=== PATIENT | female | born 1945 | race African-American/Black ===

== ENCOUNTER 2022-09-10 11:01 | Inpatient (IN) | payer OTHER ==
[~2022-09-10] VITALS: Ht 165.1 cm; Wt 94.3 kg
[2022-09-10] VITALS (36 sets, daily range): BP systolic 95–180; BP diastolic 42–112
[2022-09-10] MEDS ORDERED: IOHEXOL-350 100 ML BOTTLE ONE (11:26)
[2022-09-10] MEDS ORDERED: SUCCINYLCHOLINE CHLORIDE 200MG/10ML IV ONE (11:30)
[2022-09-10] MEDS ORDERED: FENTANYL CITRATE/PF 50MCG/ML 2ML VIAL IV ONE (11:30)
[2022-09-10] MEDS ORDERED: PROPOFOL 10MG/ML 100ML 100 ML IV ONE ×2 (11:30)
[2022-09-10] MEDS ORDERED: LEVETIRACETAM 1000MG PREMIX 100 ML IV NR (12:00)
[2022-09-10] MEDS ORDERED: MANNITOL 20% (20GM/100ML) BAG 500ML PREMIX IV ONE (12:00)
[2022-09-10] MEDS ORDERED: NICARDIPINE 40MG/200ML PREMIX 200 ML IV SCH (12:00)
[2022-09-10] MEDS ORDERED: GENTAMICIN SULF 40MG/ML 2ML VIAL ONE (12:03)
[2022-09-10] MEDS ORDERED: LIDOCAINE HCL 1%/EPI 1:200,000 30 ML VIAL ONE (12:03)
[2022-09-10] MEDS ORDERED: THROMBIN (BOVINE) 5000 UNITS/VIAL TOP ONE (12:03)
[2022-09-10] MEDS ORDERED: BACITRACIN 15GM TUBE TOP ONE (12:03)
[2022-09-10 12:13] LABS: BG CARBOXYHEMOGLOBIN 0.7 % (0.5-1.5); BG DEOXYHEMOGLOBIN 0.1 % (0.0-5.0); BG FRACTION INSPIRED OXYGEN 100; BG HCO3 ACT 28.1 mmol/L (22.0-26.0); BG METHEMOGLOBIN 0.8 % (0.0-1.5); BG OXYGEN SATURATION 99.9 % (92.0-98.5); BG OXYHEMOGLOBIN 98.4 % (94.0-97.0); BG PCO2 50.1 mmHg (35.0-45.0); BG PH 7.367 (7.350-7.450); BG PO2 538.7 mmHg (75.0-100.0); BG SAMPLE SITE RIGHT RADIAL; BG TOTAL HEMOGLOBIN 13.3 g/dL (12.0-18.0); BG VENT MODE VENT - AC
[2022-09-10] MEDS ORDERED: MANNITOL 20% 250 ML IV NR (12:15)
[2022-09-10 12:35] LABS: BASOPHILS % 0.3 % (0.0-2.0); CLARITY URINE CLEAR (CLEAR); COLOR URINE YELLOW (YELLOW); EOSINOPHILS % 0.6 % (0.0-5.0); HEMATOCRIT. 38.3 % (36.0-48.0); HEMOGLOBIN. 12.7 g/dL (12.0-16.0); KETONES URINE TRACE (NEGATIVE); LEUKOCYTE ESTERASE URINE NEGATIVE (NEGATIVE); LYMPHOCYTES % 11.1 % (20.0-50.0); MEAN CORPUSCULAR HEMOGLOBIN 27.8 pg (28.0-32.0); MEAN PLATELET VOLUME 8.9 fl (7.4-10.4); MONOCYTES % 7.8 % (2.0-8.0); NEUTROPHILS % 80.2 % (40.0-76.0); NITRITE URINE NEGATIVE (NEGATIVE); OCCULT BLOOD URINE TRACE (NEGATIVE); PLATELET 193 x1000/uL (130-400); PROTEIN URINE TRACE (NEGATIVE); RED BLOOD CELL COUNT 4.56 mill/uL (4.2-5.4); SPECIFIC GRAVITY URINE 1.026 (1.005-1.030); UROBILINOGEN URINE 0.2 E.U./dL (0.2-1.0)
[2022-09-10 12:43] LABS: CHLORIDE 106 mEq/L (98-107); INR 1.1; PROTHROMBIN TIME 11.7 sec (9.6-11.0)
[2022-09-10 12:50] LABS: ETHANOL BLOOD < 10 mg/dL
[2022-09-10 14:02] LABS: *AMPHETAMINES SCREEN URINE NEGATIVE (NEGATIVE); *BARBITURATES SCREEN URINE NEGATIVE (NEGATIVE); *BENZODIAZEPINES SCREEN URINE NEGATIVE (NEGATIVE); *COCAINE SCREEN URINE NEGATIVE (NEGATIVE); CANNABINOID URINE SCREEN NEGATIVE (NEGATIVE); METHADONE URINE SCREEN NEGATIVE (NEGATIVE); OPIATES URINE SCREEN NEGATIVE (NEGATIVE); PHENCYCLIDINE URINE SCREEN NEGATIVE (NEGATIVE)
[2022-09-10] MEDS ORDERED: CEFAZOLIN 1000MG PREMIX 50 ML IV NR (14:15)
[2022-09-10] MEDS ORDERED: NALOXONE HCL 0.4MG/ML VIAL IV PRN (14:15)
[2022-09-10] MEDS ORDERED: NICARDIPINE 100 MG in SODIUM CHLORIDE 0.9% 60 ML IV PRN (15:00)
[2022-09-10] MEDS ORDERED: ONDANSETRON HCL 4MG/2ML INJ IV PRN (15:00)
[2022-09-10] MEDS ORDERED: NA PHOS,M-B/NA PHOS,DI-BA ENEMA 118ML PR PRN (15:00)
[2022-09-10] MEDS ORDERED: IPRATROPIUM/ALBUTEROL 0.5-3(2.5)MG/3ML NEB NEB PRN (15:00)
[2022-09-10] MEDS ORDERED: ACETAMINOPHEN 650MG SUPP PR PRN ×2 (15:00)
[2022-09-10] MEDS ORDERED: PROPOFOL 200MG/20ML VIAL IV ONE (15:02)
[2022-09-10] MEDS: DEXT 5%/LACTATED RINGERS 1,000 ML IV SCH (16:35)
[2022-09-10] MEDS: NICARDIPINE 100 MG in SODIUM CHLORIDE 0.9% 60 ML IV PRN (16:36)
[2022-09-10] MEDS: MORPHINE SULFATE 4 MG/ML CPJ (NOT FOR IM USE) IV PRN (16:38)
[2022-09-10] MEDS ORDERED: PANTOPRAZOLE SODIUM 40 MG/VIAL IV SCH (17:15)
[2022-09-10] MEDS: DEXAMETHASONE 4MG/ML 1ML VIAL IV SCH (17:46)
[2022-09-10] MEDS: PROPOFOL 10MG/ML 100ML 100 ML IV PRN (17:48)
[2022-09-10 18:55] LABS: T4 FREE 1.36 ng/dL (0.76-1.46)
[2022-09-10] MEDS: IPRATROPIUM/ALBUTEROL 0.5-3(2.5)MG/3ML NEB HHN SCH (20:34)
[2022-09-10] MEDS ORDERED: LEVETIRACETAM 500MG PREMIX 100 ML IV SCH (21:00)
[2022-09-10] MEDS: CEFAZOLIN 1000MG PREMIX 50 ML IV SCH (21:14)
[2022-09-10] MEDS: FAMOTIDINE 20MG/2ML VIAL IV SCH (21:14)
[2022-09-11] VITALS (95 sets, daily range): BP systolic 98–141; BP diastolic 35–77
[2022-09-11] MEDS: DEXAMETHASONE 4MG/ML 1ML VIAL IV SCH ×5 (01:08→23:07)
[2022-09-11] MEDS: MORPHINE SULFATE 4 MG/ML CPJ (NOT FOR IM USE) IV PRN (01:09)
[2022-09-11] MEDS: PROPOFOL 10MG/ML 100ML 100 ML IV PRN ×4 (01:33→23:09)
[2022-09-11] MEDS: IPRATROPIUM/ALBUTEROL 0.5-3(2.5)MG/3ML NEB HHN SCH ×4 (02:34→20:33)
[2022-09-11] MEDS: CEFAZOLIN 1000MG PREMIX 50 ML IV SCH ×2 (03:17→04:58)
[2022-09-11] MEDS: DEXT 5%/LACTATED RINGERS 1,000 ML IV SCH (06:41)
[2022-09-11 06:47] LABS: HEMATOCRIT. 36.1 % (36.0-48.0); HEMOGLOBIN. 11.8 g/dL (12.0-16.0); MEAN CORPUSCULAR HEMOGLOBIN 27.5 pg (28.0-32.0); MEAN CORPUSCULAR VOLUME 83.7 fL (81.0-99.0); RED BLOOD CELL COUNT 4.31 mill/uL (4.2-5.4); RED CELL DISTRIBUTION WIDTH 14.5 % (11.6-14.6)
[2022-09-11] MEDS ORDERED: LIDOCAINE HCL 1% 30ML VIAL (10MG/ML) ONE (07:37)
[2022-09-11 09:04] LABS: BG BASE EXCESS 2.6 mmol/L (-2.0-2.0); BG CARBOXYHEMOGLOBIN 1.2 % (0.5-1.5); BG DEOXYHEMOGLOBIN 0.7 % (0.0-5.0); BG FRACTION INSPIRED OXYGEN 40; BG HCO3 ACT 25.4 mmol/L (22.0-26.0); BG OXYGEN SATURATION 99.3 % (92.0-98.5); BG OXYHEMOGLOBIN 98.1 % (94.0-97.0); BG PCO2 33.2 mmHg (35.0-45.0); BG PH 7.502 (7.350-7.450); BG PO2 128.1 mmHg (75.0-100.0); BG SAMPLE SITE RIGHT RADIAL; BG TOTAL HEMOGLOBIN 12.1 g/dL (12.0-18.0); BG VENT MODE VENT - AC
[2022-09-11] MEDS: FAMOTIDINE 20MG/2ML VIAL IV SCH ×2 (09:17→22:20)
[2022-09-11 10:11] LABS: CHLORIDE 113 mEq/L (98-107)
[2022-09-11] MEDS: LEVETIRACETAM 500MG PREMIX 100 ML IV SCH ×2 (10:33→22:21)
[2022-09-11] MEDS ORDERED: KCL 20MEQ/100ML PREMIX 100 ML IV NR (12:00)
[2022-09-12] VITALS (96 sets, daily range): BP systolic 108–140; BP diastolic 57–85
[2022-09-12] MEDS: IPRATROPIUM/ALBUTEROL 0.5-3(2.5)MG/3ML NEB HHN SCH ×4 (00:28→20:30)
[2022-09-12] MEDS: PROPOFOL 10MG/ML 100ML 100 ML IV PRN ×4 (02:30→17:48)
[2022-09-12] MEDS: DEXAMETHASONE 4MG/ML 1ML VIAL IV SCH ×3 (05:30→17:46)
[2022-09-12] MEDS: DEXT 5%/LACTATED RINGERS 1,000 ML IV SCH ×2 (05:31→17:46)
[2022-09-12 05:41] LABS: HEMATOCRIT. 36.9 % (36.0-48.0); HEMOGLOBIN. 11.9 g/dL (12.0-16.0); MEAN CORPUSCULAR HEMOGLOBIN 27.2 pg (28.0-32.0); MEAN CORPUSCULAR VOLUME 84.5 fL (81.0-99.0); MEAN PLATELET VOLUME 9.5 fl (7.4-10.4); PLATELET 194 x1000/uL (130-400); RED BLOOD CELL COUNT 4.36 mill/uL (4.2-5.4); RED CELL DISTRIBUTION WIDTH 14.8 % (11.6-14.6)
[2022-09-12 06:08] LABS: CHLORIDE 112 mEq/L (98-107)
[2022-09-12 07:16] LABS: PLATELET ESTIMATE NORMAL
[2022-09-12 07:17] LABS: MEAN PLATELET VOLUME 9.9 fl (7.4-10.4); PLATELET 180 x1000/uL (130-400)
[2022-09-12] MEDS ORDERED: KCL 20MEQ/100ML PREMIX 100 ML IV SCH (09:00)
[2022-09-12] MEDS: FAMOTIDINE 20MG/2ML VIAL IV SCH ×2 (09:01→20:34)
[2022-09-12] MEDS: LEVETIRACETAM 500MG PREMIX 100 ML IV SCH ×2 (09:01→20:34)
[2022-09-12 09:08] LABS: BG BASE EXCESS 1.2 mmol/L (-2.0-2.0); BG CARBOXYHEMOGLOBIN 0.3 % (0.5-1.5); BG DEOXYHEMOGLOBIN 1.2 % (0.0-5.0); BG FRACTION INSPIRED OXYGEN 40; BG HCO3 ACT 23.4 mmol/L (22.0-26.0); BG OXYGEN SATURATION 98.8 % (92.0-98.5); BG OXYHEMOGLOBIN 98.5 % (94.0-97.0); BG PCO2 29.7 mmHg (35.0-45.0); BG PH 7.514 (7.350-7.450); BG PO2 148.1 mmHg (75.0-100.0); BG SAMPLE SITE RIGHT RADIAL; BG VENT MODE VENT - AC
[2022-09-12] MEDS: NICARDIPINE 100 MG in SODIUM CHLORIDE 0.9% 60 ML IV PRN ×2 (10:03→22:08)
[2022-09-12 13:48] LABS: PLATELET ESTIMATE NORMAL
[2022-09-12] MEDS ORDERED: KCL 20MEQ/100ML PREMIX 100 ML IV NR (18:00)
[2022-09-12] MEDS ORDERED: PROPOFOL 10MG/ML 100ML 100 ML IV PRN (20:00)
[2022-09-13] VITALS (96 sets, daily range): BP systolic 103–141; BP diastolic 51–113
[2022-09-13] MEDS: IPRATROPIUM/ALBUTEROL 0.5-3(2.5)MG/3ML NEB HHN SCH ×4 (02:27→20:40)
[2022-09-13 04:16] LABS: HEMATOCRIT. 34.6 % (36.0-48.0); HEMOGLOBIN. 11.4 g/dL (12.0-16.0); MEAN CORPUSCULAR HEMOGLOBIN 27.4 pg (28.0-32.0); MEAN CORPUSCULAR VOLUME 83.4 fL (81.0-99.0); MEAN PLATELET VOLUME 9.2 fl (7.4-10.4); PLATELET 177 x1000/uL (130-400); RED BLOOD CELL COUNT 4.15 mill/uL (4.2-5.4); RED CELL DISTRIBUTION WIDTH 14.6 % (11.6-14.6)
[2022-09-13 04:27] LABS: CHLORIDE 112 mEq/L (98-107)
[2022-09-13] MEDS: NICARDIPINE 100 MG in SODIUM CHLORIDE 0.9% 60 ML IV PRN ×3 (05:54→21:00)
[2022-09-13] MEDS: LEVETIRACETAM 500MG PREMIX 100 ML IV SCH ×2 (08:35→21:23)
[2022-09-13] MEDS: FAMOTIDINE 20MG/2ML VIAL IV SCH ×2 (08:35→21:23)
[2022-09-13 09:39] LABS: PLATELET ESTIMATE NORMAL
[2022-09-13 10:55] LABS: BG BASE EXCESS 2.9 mmol/L (-2.0-2.0); BG CARBOXYHEMOGLOBIN 0.3 % (0.5-1.5); BG FRACTION INSPIRED OXYGEN 40; BG HCO3 ACT 26.4 mmol/L (22.0-26.0); BG METHEMOGLOBIN 0.4 % (0.0-1.5); BG OXYHEMOGLOBIN 97.3 % (94.0-97.0); BG PCO2 36.8 mmHg (35.0-45.0); BG PH 7.474 (7.350-7.450); BG PO2 100.4 mmHg (75.0-100.0); BG SAMPLE SITE RIGHT RADIAL; BG TOTAL HEMOGLOBIN 12.4 g/dL (12.0-18.0); BG TOTAL RESPIRATORY RATE 16 b/min; BG VENT MODE VENT - AC
[2022-09-13] MEDS: DEXT 5%/LACTATED RINGERS 1,000 ML IV SCH (13:38)
[2022-09-14] VITALS (92 sets, daily range): BP systolic 111–148; BP diastolic 50–69
[2022-09-14] MEDS: IPRATROPIUM/ALBUTEROL 0.5-3(2.5)MG/3ML NEB HHN SCH ×4 (02:29→20:17)
[2022-09-14] MEDS: DEXT 5%/LACTATED RINGERS 1,000 ML IV SCH ×2 (05:00→08:19)
[2022-09-14 05:04] LABS: HEMATOCRIT. 33.8 % (36.0-48.0); MEAN CORPUSCULAR HEMOGLOBIN 27.1 pg (28.0-32.0); MEAN CORPUSCULAR VOLUME 83.2 fL (81.0-99.0); MEAN PLATELET VOLUME 9.7 fl (7.4-10.4); PLATELET 181 x1000/uL (130-400); RED BLOOD CELL COUNT 4.07 mill/uL (4.2-5.4); RED CELL DISTRIBUTION WIDTH 14.2 % (11.6-14.6)
[2022-09-14 05:17] LABS: CHLORIDE 114 mEq/L (98-107)
[2022-09-14 08:10] LABS: BG BASE EXCESS 1.7 mmol/L (-2.0-2.0); BG CARBOXYHEMOGLOBIN 0.3 % (0.5-1.5); BG DEOXYHEMOGLOBIN 8.3 % (0.0-5.0); BG FRACTION INSPIRED OXYGEN 30; BG HCO3 ACT 24.5 mmol/L (22.0-26.0); BG METHEMOGLOBIN 0.2 % (0.0-1.5); BG OXYGEN SATURATION 91.7 % (92.0-98.5); BG OXYHEMOGLOBIN 91.2 % (94.0-97.0); BG PCO2 32.5 mmHg (35.0-45.0); BG PH 7.495 (7.350-7.450); BG PO2 57.9 mmHg (75.0-100.0); BG SAMPLE SITE LEFT RADIAL; BG TOTAL HEMOGLOBIN 11.9 g/dL (12.0-18.0); BG TOTAL RESPIRATORY RATE 21 b/min; BG VENT MODE VENT - AC
[2022-09-14] MEDS: LEVETIRACETAM 500MG PREMIX 100 ML IV SCH ×2 (08:19→21:49)
[2022-09-14] MEDS: FAMOTIDINE 20MG/2ML VIAL IV SCH ×2 (08:19→21:49)
[2022-09-14] MEDS: MORPHINE SULFATE 4 MG/ML CPJ (NOT FOR IM USE) IV PRN (09:15)
[2022-09-14] MEDS: LEVOFLOXACIN 500MG PREMIX 100 ML IV SCH (09:37)
[2022-09-14 10:43] LABS: PLATELET ESTIMATE NORMAL
[2022-09-14] MEDS: NICARDIPINE 100 MG in SODIUM CHLORIDE 0.9% 60 ML IV PRN ×2 (13:13→21:48)
[2022-09-14] MEDS ORDERED: KCL 20MEQ/100ML PREMIX 100 ML IV NR (16:00)
[2022-09-14] MEDS: HYDRALAZINE 20MG/ML VIAL IV PRN (18:19)
[2022-09-15] VITALS (93 sets, daily range): BP systolic 101–136; BP diastolic 46–102
[2022-09-15] MEDS: IPRATROPIUM/ALBUTEROL 0.5-3(2.5)MG/3ML NEB HHN SCH ×4 (01:41→20:38)
[2022-09-15] MEDS: NICARDIPINE 100 MG in SODIUM CHLORIDE 0.9% 60 ML IV PRN ×2 (03:39→11:27)
[2022-09-15] MEDS: HYDRALAZINE 20MG/ML VIAL IV PRN ×2 (03:43→10:55)
[2022-09-15 05:38] LABS: HEMOGLOBIN. 11.4 g/dL (12.0-16.0); MEAN CORPUSCULAR HEMOGLOBIN 27.3 pg (28.0-32.0); MEAN PLATELET VOLUME 9.9 fl (7.4-10.4); PLATELET 172 x1000/uL (130-400); RED BLOOD CELL COUNT 4.17 mill/uL (4.2-5.4); RED CELL DISTRIBUTION WIDTH 14.6 % (11.6-14.6)
[2022-09-15 05:50] LABS: CHLORIDE 113 mEq/L (98-107)
[2022-09-15 08:46] LABS: BG BASE EXCESS 2.7 mmol/L (-2.0-2.0); BG CARBOXYHEMOGLOBIN 0.7 % (0.5-1.5); BG DEOXYHEMOGLOBIN 7.8 % (0.0-5.0); BG FRACTION INSPIRED OXYGEN 40; BG HCO3 ACT 23.8 mmol/L (22.0-26.0); BG METHEMOGLOBIN 0.2 % (0.0-1.5); BG OXYGEN SATURATION 92.1 % (92.0-98.5); BG OXYHEMOGLOBIN 91.3 % (94.0-97.0); BG PCO2 26.6 mmHg (35.0-45.0); BG PO2 53.6 mmHg (75.0-100.0); BG SAMPLE SITE LEFT RADIAL; BG TOTAL HEMOGLOBIN 12.1 g/dL (12.0-18.0); BG VENT MODE VENT - AC
[2022-09-15 09:35] LABS: PLATELET ESTIMATE NORMAL
[2022-09-15] MEDS: LEVETIRACETAM 500MG PREMIX 100 ML IV SCH ×2 (10:54→21:37)
[2022-09-15] MEDS: LEVOFLOXACIN 500MG PREMIX 100 ML IV SCH (10:54)
[2022-09-15] MEDS: FAMOTIDINE 20MG/2ML VIAL IV SCH ×2 (10:54→21:37)
[2022-09-15] MEDS ORDERED: CLONIDINE 0.2MG TABLET PO PRN (15:00)
[2022-09-15] MEDS: DOCUSATE SODIUM SUGAR FREE 100MG/10ML UDC NG SCH (15:03)
[2022-09-15] MEDS: AMLODIPINE 10MG TABLET PO SCH (15:10)
[2022-09-15] MEDS: DEXT 5%/LACTATED RINGERS 1,000 ML IV SCH (21:36)
[2022-09-15] MEDS: HYDRALAZINE HCL 50MG TABLET PO SCH (21:37)
[2022-09-16] VITALS (86 sets, daily range): BP systolic 113–148; BP diastolic 23–73
[2022-09-16] MEDS: IPRATROPIUM/ALBUTEROL 0.5-3(2.5)MG/3ML NEB HHN SCH ×4 (02:33→21:18)
[2022-09-16] MEDS: DEXT 5%/LACTATED RINGERS 1,000 ML IV SCH ×2 (03:30→21:53)
[2022-09-16 05:42] LABS: HEMATOCRIT. 31.4 % (36.0-48.0); HEMOGLOBIN. 10.3 g/dL (12.0-16.0); MEAN CORPUSCULAR HEMOGLOBIN 27.4 pg (28.0-32.0); MEAN CORPUSCULAR VOLUME 83.6 fL (81.0-99.0); PLATELET 182 x1000/uL (130-400); RED BLOOD CELL COUNT 3.76 mill/uL (4.2-5.4); RED CELL DISTRIBUTION WIDTH 14.9 % (11.6-14.6)
[2022-09-16 05:54] LABS: CHLORIDE 115 mEq/L (98-107)
[2022-09-16] MEDS: HYDRALAZINE HCL 50MG TABLET PO SCH ×3 (06:12→21:52)
[2022-09-16 07:36] LABS: BG CARBOXYHEMOGLOBIN 0.3 % (0.5-1.5); BG DEOXYHEMOGLOBIN 2.6 % (0.0-5.0); BG HCO3 ACT 25.1 mmol/L (22.0-26.0); BG METHEMOGLOBIN 0.1 % (0.0-1.5); BG OXYGEN SATURATION 97.4 % (92.0-98.5); BG PCO2 33.9 mmHg (35.0-45.0); BG PH 7.488 (7.350-7.450); BG PO2 94.4 mmHg (75.0-100.0); BG SAMPLE SITE LEFT RADIAL; BG TOTAL HEMOGLOBIN 10.5 g/dL (12.0-18.0); BG VENT MODE VENT - AC
[2022-09-16] MEDS: LEVETIRACETAM 500MG PREMIX 100 ML IV SCH ×2 (10:00→21:52)
[2022-09-16] MEDS: DOCUSATE SODIUM SUGAR FREE 100MG/10ML UDC NG SCH (10:03)
[2022-09-16] MEDS: AMLODIPINE 10MG TABLET PO SCH (10:03)
[2022-09-16] MEDS: FAMOTIDINE 20MG/2ML VIAL IV SCH ×2 (10:03→21:52)
[2022-09-16] MEDS: LEVOFLOXACIN 500MG PREMIX 100 ML IV SCH (10:04)
[2022-09-16] MEDS: NICARDIPINE 100 MG in SODIUM CHLORIDE 0.9% 60 ML IV PRN (12:53)
[2022-09-16 20:11] LABS: PLATELET ESTIMATE NORMAL
[2022-09-17] VITALS (76 sets, daily range): BP systolic 114–143; BP diastolic 56–76
[2022-09-17] MEDS: IPRATROPIUM/ALBUTEROL 0.5-3(2.5)MG/3ML NEB HHN SCH ×4 (01:40→19:47)
[2022-09-17 06:14] LABS: HEMATOCRIT. 30.1 % (36.0-48.0); HEMOGLOBIN. 9.9 g/dL (12.0-16.0); MEAN CORPUSCULAR HEMOGLOBIN 27.7 pg (28.0-32.0); MEAN CORPUSCULAR VOLUME 84.5 fL (81.0-99.0); MEAN PLATELET VOLUME 9.8 fl (7.4-10.4); PLATELET 184 x1000/uL (130-400); RED BLOOD CELL COUNT 3.56 mill/uL (4.2-5.4); RED CELL DISTRIBUTION WIDTH 15.3 % (11.6-14.6)
[2022-09-17] MEDS: NICARDIPINE 100 MG in SODIUM CHLORIDE 0.9% 60 ML IV PRN (06:23)
[2022-09-17] MEDS: HYDRALAZINE HCL 50MG TABLET PO SCH ×3 (06:26→22:14)
[2022-09-17 06:57] LABS: CHLORIDE 117 mEq/L (98-107)
[2022-09-17] MEDS: DOCUSATE SODIUM SUGAR FREE 100MG/10ML UDC NG SCH (08:03)
[2022-09-17] MEDS: AMLODIPINE 10MG TABLET PO SCH (08:03)
[2022-09-17] MEDS: FAMOTIDINE 20MG/2ML VIAL IV SCH ×2 (08:03→22:14)
[2022-09-17] MEDS: LEVETIRACETAM 500MG PREMIX 100 ML IV SCH ×2 (08:03→22:14)
[2022-09-17] MEDS: LEVOFLOXACIN 500MG PREMIX 100 ML IV SCH (09:37)
[2022-09-17] MEDS: DEXT 5%/LACTATED RINGERS 1,000 ML IV SCH (12:27)
[2022-09-17 14:37] LABS: NUCLEATED RED BLOOD CELLS 2 /100 WBC; PLATELET ESTIMATE NORMAL
[2022-09-17] MEDS ORDERED: HYDRALAZINE HCL 25MG TABLET PO PRN (17:00)
[2022-09-18] VITALS (87 sets, daily range): BP systolic 110–175; BP diastolic 57–90
[2022-09-18] MEDS: IPRATROPIUM/ALBUTEROL 0.5-3(2.5)MG/3ML NEB HHN SCH ×4 (01:59→20:10)
[2022-09-18] MEDS: HYDRALAZINE 20MG/ML VIAL IV PRN (04:30)
[2022-09-18 05:48] LABS: CHLORIDE 113 mEq/L (98-107)
[2022-09-18 05:51] LABS: HEMATOCRIT. 31.1 % (36.0-48.0); HEMOGLOBIN. 10.1 g/dL (12.0-16.0); MEAN CORPUSCULAR HEMOGLOBIN 27.4 pg (28.0-32.0); MEAN CORPUSCULAR VOLUME 84.7 fL (81.0-99.0); MEAN PLATELET VOLUME 9.6 fl (7.4-10.4); PLATELET 204 x1000/uL (130-400); RED BLOOD CELL COUNT 3.67 mill/uL (4.2-5.4); RED CELL DISTRIBUTION WIDTH 14.7 % (11.6-14.6)
[2022-09-18] MEDS: HYDRALAZINE HCL 50MG TABLET PO SCH (06:38)
[2022-09-18] MEDS: DEXT 5%/LACTATED RINGERS 1,000 ML IV SCH ×2 (06:39→21:20)
[2022-09-18] MEDS: LEVETIRACETAM 500MG PREMIX 100 ML IV SCH ×2 (09:04→21:19)
[2022-09-18] MEDS: DOCUSATE SODIUM SUGAR FREE 100MG/10ML UDC NG SCH (09:18)
[2022-09-18] MEDS: FAMOTIDINE 20MG/2ML VIAL IV SCH ×2 (09:18→21:19)
[2022-09-18] MEDS: AMLODIPINE 10MG TABLET PO SCH (09:18)
[2022-09-18] MEDS: LEVOFLOXACIN 500MG PREMIX 100 ML IV SCH (09:18)
[2022-09-18] MEDS: MEROPENEM 1,000 MG in SODIUM CHLORIDE 0.9% 100 ML IV SCH ×2 (13:02→21:19)
[2022-09-18] MEDS: HYDRALAZINE HCL 100MG TABLET PO SCH ×2 (13:05→21:19)
[2022-09-18 18:18] LABS: PLATELET ESTIMATE NORMAL
[2022-09-19] VITALS (36 sets, daily range): BP systolic 115–166; BP diastolic 38–89
[2022-09-19] MEDS: IPRATROPIUM/ALBUTEROL 0.5-3(2.5)MG/3ML NEB HHN SCH ×4 (00:45→20:06)
[2022-09-19] MEDS: HYDRALAZINE 20MG/ML VIAL IV PRN (04:35)
[2022-09-19] MEDS: HYDRALAZINE HCL 100MG TABLET PO SCH ×3 (05:09→21:09)
[2022-09-19] MEDS: MEROPENEM 1,000 MG in SODIUM CHLORIDE 0.9% 100 ML IV SCH ×3 (05:09→21:09)
[2022-09-19 06:09] LABS: HEMATOCRIT. 30.5 % (36.0-48.0); HEMOGLOBIN. 9.9 g/dL (12.0-16.0); MEAN CORPUSCULAR HEMOGLOBIN 27.6 pg (28.0-32.0); MEAN CORPUSCULAR VOLUME 84.6 fL (81.0-99.0)
[2022-09-19 06:46] LABS: CHLORIDE 108 mEq/L (98-107)
[2022-09-19] MEDS: FAMOTIDINE 20MG/2ML VIAL IV SCH ×2 (09:24→21:08)
[2022-09-19] MEDS: AMLODIPINE 10MG TABLET PO SCH (09:25)
[2022-09-19] MEDS: DOCUSATE SODIUM SUGAR FREE 100MG/10ML UDC NG SCH (09:25)
[2022-09-19] MEDS: LEVETIRACETAM 500MG PREMIX 100 ML IV SCH ×2 (09:26→21:09)
[2022-09-19 09:29] LABS: MEAN PLATELET VOLUME 10.1 fl (7.4-10.4); PLATELET ESTIMATE NORMAL
[2022-09-19 09:30] LABS: PLATELET 200 x1000/uL (130-400)
[2022-09-19] MEDS: DEXT 5%/LACTATED RINGERS 1,000 ML IV SCH (15:05)
[2022-09-20] VITALS (47 sets, daily range): BP systolic 116–165; BP diastolic 53–80
[2022-09-20] MEDS: MEROPENEM 1,000 MG in SODIUM CHLORIDE 0.9% 100 ML IV SCH ×3 (05:07→21:19)
[2022-09-20] MEDS: HYDRALAZINE HCL 100MG TABLET PO SCH ×3 (05:07→21:20)
[2022-09-20] MEDS: IPRATROPIUM/ALBUTEROL 0.5-3(2.5)MG/3ML NEB HHN SCH ×4 (08:21→20:02)
[2022-09-20] MEDS: DEXT 5%/LACTATED RINGERS 1,000 ML IV SCH (09:16)
[2022-09-20] MEDS: FAMOTIDINE 20MG/2ML VIAL IV SCH ×2 (09:16→20:23)
[2022-09-20] MEDS: DOCUSATE SODIUM SUGAR FREE 100MG/10ML UDC NG SCH (09:16)
[2022-09-20] MEDS: AMLODIPINE 10MG TABLET PO SCH (09:16)
[2022-09-20] MEDS: HYDRALAZINE 20MG/ML VIAL IV PRN (09:20)
[2022-09-20] MEDS: LEVETIRACETAM 500MG PREMIX 100 ML IV SCH ×2 (09:20→20:23)
[2022-09-20] MEDS: LOSARTAN POTASSIUM 50 MG TABLET PO SCH (15:56)
[2022-09-21] VITALS (43 sets, daily range): BP systolic 113–169; BP diastolic 46–86
[2022-09-21] MEDS: DEXT 5%/LACTATED RINGERS 1,000 ML IV SCH ×2 (01:29→17:33)
[2022-09-21] MEDS: IPRATROPIUM/ALBUTEROL 0.5-3(2.5)MG/3ML NEB HHN SCH ×5 (01:47→21:59)
[2022-09-21] MEDS: MEROPENEM 1,000 MG in SODIUM CHLORIDE 0.9% 100 ML IV SCH ×3 (05:53→22:11)
[2022-09-21] MEDS: HYDRALAZINE HCL 100MG TABLET PO SCH ×3 (05:54→22:11)
[2022-09-21] MEDS: DOCUSATE SODIUM SUGAR FREE 100MG/10ML UDC NG SCH (08:43)
[2022-09-21] MEDS: LEVETIRACETAM 500MG PREMIX 100 ML IV SCH ×2 (08:43→22:11)
[2022-09-21] MEDS: FAMOTIDINE 20MG/2ML VIAL IV SCH ×2 (08:43→22:11)
[2022-09-21] MEDS: LOSARTAN POTASSIUM 50 MG TABLET PO SCH (08:44)
[2022-09-21] MEDS: AMLODIPINE 10MG TABLET PO SCH (08:44)
[2022-09-22] VITALS (19 sets, daily range): BP systolic 123–154; BP diastolic 51–90
[2022-09-22] MEDS: IPRATROPIUM/ALBUTEROL 0.5-3(2.5)MG/3ML NEB HHN SCH ×3 (01:52→13:33)
[2022-09-22] MEDS: HYDRALAZINE HCL 100MG TABLET PO SCH ×2 (06:02→14:12)
[2022-09-22] MEDS: MEROPENEM 1,000 MG in SODIUM CHLORIDE 0.9% 100 ML IV SCH ×2 (06:02→14:12)
[2022-09-22] MEDS: DOCUSATE SODIUM SUGAR FREE 100MG/10ML UDC NG SCH (08:37)
[2022-09-22] MEDS: DEXT 5%/LACTATED RINGERS 1,000 ML IV SCH (08:38)
[2022-09-22] MEDS: AMLODIPINE 10MG TABLET PO SCH (08:38)
[2022-09-22] MEDS: LEVETIRACETAM 500MG PREMIX 100 ML IV SCH (08:38)
[2022-09-22] MEDS: LOSARTAN POTASSIUM 50 MG TABLET PO SCH (08:38)
[2022-09-22] MEDS: FAMOTIDINE 20MG/2ML VIAL IV SCH (08:38)
== END 2022-09-22 17:10 | disposition short-term general hospital (02) | DRG 23 ==
LOC: ER 11:01 → MICUNO 14:01 → EDBEDREQTM 14:12 → EDBEDREQ 14:12 → UNDODISIN 09-14 14:00
PROVIDERS: ADMIT Internal Medicine; ATTEND Internal Medicine
PROC: 00C70ZZ Extirpation of Matter from Cerebral Hemisphere, Open Approach (ICD-10-PCS; principal; 2022-09-10)
PROC: 00H032Z Insertion of Monitoring Device into Brain, Percutaneous Approach (ICD-10-PCS; 2022-09-10)
PROC: 00U207Z Supplement Dura Mater with Autologous Tissue Substitute, Open Approach (ICD-10-PCS; 2022-09-10)
PROC: 009600Z Drainage of Cerebral Ventricle with Drainage Device, Open Approach (ICD-10-PCS; 2022-09-10)
PROC: 4A103BD Monitoring of Intracranial Pressure, Percutaneous Approach (ICD-10-PCS; 2022-09-10)
PROC: 0BH17EZ Insertion of Endotracheal Airway into Trachea, Via Natural or Artificial Opening (ICD-10-PCS; 2022-09-11)
PROC: 5A1955Z Respiratory Ventilation, Greater than 96 Consecutive Hours (ICD-10-PCS; 2022-09-11)
PROC: 02HV33Z Insertion of Infusion Device into Superior Vena Cava, Percutaneous Approach (ICD-10-PCS; 2022-09-11)
PROC: B548ZZA Ultrasonography of Superior Vena Cava, Guidance (ICD-10-PCS; 2022-09-11)
DX: I61.1 Nontraumatic intracerebral hemorrhage in hemisphere, cortical (principal); E43 Unspecified severe protein-calorie malnutrition; J96.01 Acute respiratory failure with hypoxia; J18.9 Pneumonia, unspecified organism; I16.1 Hypertensive emergency; G93.40 Encephalopathy, unspecified; E87.0 Hyperosmolality and hypernatremia; E87.6 Hypokalemia; E78.5 Hyperlipidemia, unspecified; R40.20 Unspecified coma; D64.9 Anemia, unspecified; R73.9 Hyperglycemia, unspecified; T38.0X5A Adverse effect of glucocorticoids and synthetic analogues, initial encounter; Z20.822 Contact with and (suspected) exposure to COVID-19; D72.829 Elevated white blood cell count, unspecified; E80.6 Other disorders of bilirubin metabolism; G93.89 Other specified disorders of brain; I61.5 Nontraumatic intracerebral hemorrhage, intraventricular; Z79.82 Long term (current) use of aspirin; Z85.3 Personal history of malignant neoplasm of breast; Y92.009 Unspecified place in unspecified non-institutional (private) residence as the place of occurrence of the external cause; Z90.710 Acquired absence of both cervix and uterus; Z51.5 Encounter for palliative care; Z79.899 Other long term (current) drug therapy; Z68.34 Body mass index [BMI] 34.0-34.9, adult
CPT/HCPCS: 31500; 36415; 36573; 36600; 70496; 70498; 71045; 80048; 80053; 80305; 80320; 81003; 82375; 82805; 82962; 83605; 84145; 84439; 84443; 84478; 85025; 87070; 87077; 87186; 87426; 93005; 93970; 94002; 94003; 94640; 99291; A6261; C1725; C9113; J0360; J0690; J1100; J1580; J1953; J1956; J2185; J2270; J2704; J3010; J3480; J3490; J7050; J7121; Q9967; C1713; G0480